=== PATIENT | female | born 1985 | race Caucasian/White ===

== ENCOUNTER 2017-08-24 10:18 | Outpatient (CLI) | payer OTHER ==
[~2017-08-24 10:18] MED LIST: MOTRIN600 MG PO
== END 2017-08-24 10:44 | disposition home or self-care (01) ==
LOC: NST 10:18
DX: Z34.83 Encounter for supervision of other normal pregnancy, third trimester (principal)

== ENCOUNTER 2017-10-11 08:54 | Outpatient (CLI) | payer OTHER | END 2017-10-11 09:29 | disposition home or self-care (01) | LOC: NST 08:54 | DX: Z34.83 Encounter for supervision of other normal pregnancy, third trimester (principal) ==

== ENCOUNTER 2021-02-24 09:00 | Inpatient (IN) | payer OTHER ==
[~2021-02-24] VITALS: Ht 160 cm; Wt 2.7 kg
[~2021-02-24 09:00] MED LIST changes: +PRENATAL TABLE1 EAC1 PO
[2021-03-02] MEDS ORDERED: IRON325 MG PO (06:26)
[2021-03-04] MEDS ORDERED: OXYC1TAB9 PO (07:22)
[2021-03-04] MEDS ORDERED: KETO10TA2 PO (07:22)
== END 2021-03-04 14:01 | disposition home or self-care (01) | DRG 788 ==
LOC: OB/GYN 03-02 05:55 → O/R 03-02 05:55 → OB/GYN 03-02 07:00
PROVIDERS: ADMIT Obstetrics & Gynecology Maternal & Fetal Medicine; ATTEND Obstetrics & Gynecology Maternal & Fetal Medicine
PROC: 4A1HXFZ Monitoring of Products of Conception, Cardiac Rhythm, External Approach (ICD-10-PCS; 2021-03-02)
PROC: 10D00Z1 Extraction of Products of Conception, Low, Open Approach (ICD-10-PCS; principal; 2021-03-02 07:00)
DX: O34.211 Maternal care for low transverse scar from previous cesarean delivery (principal); N85.8 Other specified noninflammatory disorders of uterus; Z37.0 Single live birth; Z3A.39 39 weeks gestation of pregnancy